=== PATIENT | female | born 1980 | race Caucasian/White ===

== ENCOUNTER 2018-02-11 21:23 | Emergency (ER) | payer OTHER ==
[2018-02-11 21:32] VITALS: RESP 16; TEMP 97.6
[2018-02-11] MEDS ORDERED: FAMOTIDINE 20 MG TAB PO STA (22:15)
[2018-02-11] MEDS ORDERED: diphenhydrAMINE 50 MG CAP PO STA (22:15)
[2018-02-11] MEDS ORDERED: methylPREDNISolone SOD SUCCI 125 MG/2 ML VIAL IM ONE (22:15)
--- NOTE | 2018-02-11 22:38 | ED ---
Allergic Reaction HPI - General Chief complaint: Allergic Reaction Stated complaint: Allergic reaction Time Seen by Provider: 02/11/18 21:59 Source: patient, RN notes reviewed, old records reviewed Mode of arrival: ambulatory Limitations: no limitations - History of Present Illness Initial Comments: Renata is a 29-year-old female who presents due to an ALLERGIC reaction to hair dye. She had her hair dyed approximately one week ago. Patient reports that since that time she's been on steroids. She states that she had the steroids often for for one and she's had worsening itching and swelling over her scalp. Patient reports she's never had a reaction to hair dye like this in the past. Patient reports she feels like her skin is burning. - Related Data Previous Rx's Medication Instructions Recorded Famotidine [Pepcid] 20 mg PO BID #20 tablet 02/11/18 Hydrocortisone Cream 1 applic TOPICAL QID #60 gm 02/11/18 [Hydrocortisone 1% Cream] diphenhydrAMINE [Benadryl] 25 mg PO QID PRN #20 capsule 02/11/18 predniSONE 10 mg PO DAILY #30 tab 02/11/18 Allergies Allergy/AdvReac Type Severity Reaction Status Date / Time No Known Allergies Allergy Verified 02/14/18 10:13 Review of Systems ROS Statement: Those systems with pertinent positive or pertinent negative responses have been documented in the HPI. ROS Other: All systems not noted in ROS Statement are negative. Past Medical History Past Medical History: No Reported History History of Any Multi-Drug Resistant Organisms: None Reported Past Surgical History: No Surgical Hx Reported Past Psychological History: No Psychological Hx Reported Smoking Status: Never smoker Past Alcohol Use History: None Reported Past Drug Use History: None Reported General Exam - General Exam Comments Initial Comments: 37 year old female, no acute distress. Limitations: no limitations General appearance: alert, in no apparent distress Head exam: Present: atraumatic, normocephalic, normal inspection, other (raised urticaria over scalp) Eye exam: Present: normal appearance, PERRL, EOMI. Absent: scleral icterus, conjunctival injection, periorbital swelling ENT exam: Present: normal exam, mucous membranes moist Neck exam: Present: normal inspection. Absent: tenderness, meningismus, lymphadenopathy Respiratory exam: Present: normal lung sounds bilaterally. Absent: respiratory distress, wheezes, rales, rhonchi, stridor Cardiovascular Exam: Present: regular rate, normal rhythm, normal heart sounds. Absent: systolic murmur, diastolic murmur, rubs, gallop, clicks GI/Abdominal exam: Present: soft, normal bowel sounds. Absent: distended, tenderness, guarding, rebound, rigid Back exam: Present: normal inspection Neurological exam: Present: alert, oriented X3, CN II-XII intact Psychiatric exam: Present: normal affect, normal mood Skin exam: Present: warm, dry, intact, normal color. Absent: rash Course Vital Signs 02/11/18 02/11/18 21:28 23:00 Temperature 97.6 F Pulse Rate 60 50 L Respiratory 16 16 Rate Blood Pressure 113/78 106/61 O2 Sat by Pulse 100 99 Oximetry Medical Decision Making - Medical Decision Making 37 year old female with prolonged allergic reaaciton to hair dye. She has hives and flaking over her scalp. She was given IM solumedrol. Treatment with long steriod course, pepcid and benadryl. Discussed follow up with PCP and return parameters discussed. Discussed Dermatology follow up. Disposition Clinical Impression: Allergic reaction Disposition: HOME SELF-CARE Condition: Good Instructions: Allergies (ED) Additional Instructions: Patient advised to follow-up with primary care physician. Return to the emergency department if any alarming signs or symptoms occur. Prescriptions: diphenhydrAMINE [Benadryl] 25 mg PO QID PRN #20 capsule PRN Reason: Itching Famotidine [Pepcid] 20 mg PO BID #20 tablet Hydrocortisone Cream [Hydrocortisone 1% Cream] 1 applic TOPICAL QID #60 gm predniSONE 10 mg PO DAILY #30 tab Is patient prescribed a controlled substance at d/c from ED?: No Referrals: None,Stated [Primary Care Provider] - 1-2 days Prabhjot Benson MD [STAFF PHYSICIAN] - 1-2 days Time of Disposition: 22:34
[2018-02-11 23:11] VITALS: BP 106/61; PULSE 50
== END 2018-02-11 23:00 | disposition home or self-care (01) ==
LOC: MERGE 21:23 → EC 21:23
DX: T78.49XA Other allergy, initial encounter (principal)
CPT/HCPCS: 99283; 96372; J2930